=== PATIENT | male | born 1945 | race Caucasian/White ===

== ENCOUNTER 2017-11-05 17:32 | Inpatient (IN) | payer OTHER, MEDICAID, MEDICARE ==
[2017-11-05 18:32] LABS: ADD MAN DIFF? NO
[2017-11-05] MEDS: SOD CHLORIDE 0.9% 1,000 ML IV (18:32)
[2017-11-05] MEDS: ONDANSETRON 4 MG INJ IV (18:32)
[2017-11-05 18:34] LABS: BASOPHIL # 0.1 10^3/ul (0.0-0.1); BASOPHILS % 0.8 % (0.0-2.0); EOSINOPHILS # 0.4 10^3/ul (0.0-0.5); EOSINOPHILS % 3.6 % (0.0-7.0); HEMATOCRIT 35.7 % (42.0-52.0); HEMOGLOBIN 11.9 g/dl (14.0-18.0); LYMPHOCYTES # 2.6 10^3/ul (0.8-2.9); LYMPHOCYTES % 24.7 % (15.0-51.0); MEAN CORPUSCULAR HEMOGLOBIN 29.2 pg (29.0-33.0); MEAN CORPUSCULAR HGB CONC 33.3 g/dl (32.0-37.0); MEAN CORPUSCULAR VOLUME 87.5 fl (82.0-101.0); MEAN PLATELET VOLUME 10.4 fl (7.4-10.4); MONOCYTE # 0.8 10^3/ul (0.3-0.9); MONOCYTES % 7.9 % (0.0-11.0); NEUTROPHIL # 6.7 10^3/ul (1.6-7.5); NEUTROPHILS % 62.4 % (39.0-77.0); PLATELET COUNT 235 10^3/UL (140-415); RED BLOOD COUNT 4.08 10^6/ul (4.70-6.10); RED CELL DISTRIBUTION WIDTH 16.3 % (11.5-14.5)
[2017-11-05 18:34] LABS: WHITE BLOOD COUNT 10.6 10^3/ul (4.8-10.8)
[2017-11-05 18:53] LABS: ALANINE AMINOTRANSFERASE 41 IU/L (13-69); ALBUMIN 4.2 g/dl (3.3-4.9); ALBUMIN/GLOBULIN RATIO 1.35; ALKALINE PHOSPHATASE 73 IU/L (42-121); ANION GAP 20 (8-16); ASPARTATE AMINO TRANSFERASE 29 IU/L (15-46); BLOOD UREA NITROGEN 13 mg/dl (7-20); CARBON DIOXIDE 19 mmol/L (21-31); CHLORIDE 108 mmol/L (97-110); CREATININE 0.81 mg/dl (0.61-1.24); GLUCOSE 124 mg/dl (70-220); POTASSIUM 3.6 mmol/L (3.5-5.1); SODIUM 143 mmol/L (135-144); TOTAL PROTEIN 7.3 g/dl (6.1-8.1)
[2017-11-05 18:54] LABS: INR 0.93; PROTIME 12.6 Sec (11.9-14.9)
[2017-11-05 18:56] LABS: PARTIAL THROMBOPLASTIN TIME 22.5 Sec (25.0-35.0)
[2017-11-05 19:04] LABS: TROPONIN-I < 0.010 ng/ml (0.000-0.120)
[2017-11-05] MEDS: PANTOPRAZOLE IV 80 MG in SOD CHLORIDE 0.9% 100 ML IVPB (19:08)
[2017-11-05 19:27] LABS: UR RBC 0 /HPF (0-5); UR SQUAMOUS EPITHELIAL CELL FEW /HPF (FEW); UR WBC 1 /HPF (0-5)
[2017-11-05 19:31] LABS: ADD UMIC NO; UR ASCORBIC ACID NEGATIVE (NEGATIVE); UR BILIRUBIN (Dip) NEGATIVE (NEGATIVE); UR BLOOD (Dip) NEGATIVE (NEGATIVE); UR CLARITY CLEAR (CLEAR); UR COLOR YELLOW (YELLOW); UR GLUCOSE (Dip) 3+ mg/dL (NEGATIVE); UR KETONES (Dip) NEGATIVE (NEGATIVE); UR LEUKOCYTE ESTERASE (Dip) NEGATIVE Leu/ul (NEGATIVE); UR NITRITE (Dip) NEGATIVE (NEGATIVE); UR SPECIFIC GRAVITY (Dip) 1.011 (1.003-1.030); UR TOTAL PROTEIN (Dip) NEGATIVE (NEGATIVE); UR UROBILINOGEN (Dip) NEGATIVE (NEGATIVE)
[2017-11-05 19:44] LABS: AMPHETAMINE/METHAMPHETAMINE Negative (NEGATIVE); BARBITURATES Negative (NEGATIVE); BENZODIAZEPINES Negative (NEGATIVE); CANNABINOIDS Negative (NEGATIVE); COCAINE Negative (NEGATIVE)
[2017-11-05 19:47] LABS: OPIATES Negative (NEGATIVE)
[2017-11-05] MEDS ORDERED: ACETAMINOPHEN 325 MG TAB PO ×2 (21:00→23:00)
[2017-11-05] MEDS ORDERED: ONDANSETRON 4 MG INJ IV ×2 (21:00→23:00)
[2017-11-05] MEDS ORDERED: NON-FORMULARY/PATIENT OWN MED (Sitagliptin Phos-Metformin Hcl (Janumet) 1 TAB) PO (23:00)
[2017-11-05] MEDS ORDERED: D5-NS + KCL 40 MEQ 1,000 ML IV (23:00)
[2017-11-06] MEDS: D5-NS + KCL 40 MEQ 1,000 ML IV (02:54)
[2017-11-06 05:55] LABS: ADD MAN DIFF? NO
[2017-11-06] MEDS: PANTOPRAZOLE 40 MG INJ IV (06:04)
[2017-11-06 06:07] LABS: BASOPHIL # 0.1 10^3/ul (0.0-0.1); BASOPHILS % 0.9 % (0.0-2.0); EOSINOPHILS # 0.3 10^3/ul (0.0-0.5); EOSINOPHILS % 4.3 % (0.0-7.0); HEMATOCRIT 34.1 % (42.0-52.0); HEMOGLOBIN 11.2 g/dl (14.0-18.0); LYMPHOCYTES # 2.1 10^3/ul (0.8-2.9); MEAN CORPUSCULAR HEMOGLOBIN 28.6 pg (29.0-33.0); MEAN CORPUSCULAR HGB CONC 32.8 g/dl (32.0-37.0); MEAN PLATELET VOLUME 10.6 fl (7.4-10.4); MONOCYTE # 0.6 10^3/ul (0.3-0.9); MONOCYTES % 9.9 % (0.0-11.0); NEUTROPHIL # 3.4 10^3/ul (1.6-7.5); NEUTROPHILS % 52.6 % (39.0-77.0); PLATELET COUNT 218 10^3/UL (140-415); RED BLOOD COUNT 3.92 10^6/ul (4.70-6.10); RED CELL DISTRIBUTION WIDTH 16.8 % (11.5-14.5)
[2017-11-06 06:07] LABS: WHITE BLOOD COUNT 6.5 10^3/ul (4.8-10.8)
[2017-11-06 06:40] LABS: HEMOGLOBIN A1C 9.5 % (0-5.9)
[2017-11-06 06:41] LABS: ANION GAP 13 (8-16); BLOOD UREA NITROGEN 13 mg/dl (7-20); CALCIUM 8.5 mg/dl (8.4-10.2); CARBON DIOXIDE 25 mmol/L (21-31); CHLORIDE 109 mmol/L (97-110); CHOL/HDL RATIO 2.6 RATIO; CHOLESTEROL 161 mg/dl (100-200); CREATININE 0.71 mg/dl (0.61-1.24); GLUCOSE 195 mg/dl (70-220); HDL CHOLESTEROL 60 mg/dl (31-75); LDL CHOLESTEROL,CALCULATED 41 mg/dl; POTASSIUM 4.1 mmol/L (3.5-5.1); SODIUM 143 mmol/L (135-144); TRIGLYCERIDES 301 mg/dl (0-149)
[2017-11-06] MEDS ORDERED: LIDOCAINE 2% (SDV) 5 ML INJ (07:00)
[2017-11-06] MEDS ORDERED: GLUCOSE GEL 15 GRAM TUBE BUCCAL (07:30)
[2017-11-06] MEDS ORDERED: DEXTROSE 50% 50 ML SYRINGE IV ×2 (07:30)
[2017-11-06] MEDS ORDERED: GLUCAGON 1 MG INJ IM (07:30)
[2017-11-06] MEDS ORDERED: GLUCOSE GEL 15 GRAM TUBE PO ×2 (07:30)
[2017-11-06] MEDS: INSULIN ASPART [NOVOLOG] 3 ML PEN SC ×4 (08:56→21:00)
[2017-11-06] MEDS: ISOSORBIDE MONONITRATE(SR)30 MG TAB PO (08:58)
[2017-11-06] MEDS: METOPROLOL 25 MG TAB PO ×2 (08:58→21:31)
[2017-11-06] MEDS: LISINOPRIL 10 MG TAB PO (09:00)
[2017-11-06] MEDS: LORATADINE 10 MG TAB PO (09:00)
[2017-11-06] MEDS: DULOXETINE 30 MG CAP DR PO (12:52)
[2017-11-06] MEDS: HYDROCODONE/APAP (5/325) TAB PO (17:01)
[2017-11-06] MEDS: ETOMIDATE 20 MG INJ (17:24)
[2017-11-06] MEDS: ACARBOSE 50 MG TAB PO (17:55)
[2017-11-06] MEDS ORDERED: PHENYTOIN 100 MG CAP PO (21:00)
[2017-11-06] MEDS: ATORVASTATIN 20 MG TAB PO (21:22)
[2017-11-06] MEDS: glipiZIDE 10 MG TAB PO (21:22)
[2017-11-06] MEDS: CALCIUM/VITAMIN D (500/200) TAB PO (21:24)
[2017-11-06] MEDS: TAMSULOSIN (SR) 0.4 MG CAP PO (21:25)
[2017-11-06] MEDS: PHENYTOIN 100 MG CAP PO (21:25)
[2017-11-06] MEDS: EZETIMIBE 10 MG TAB PO (21:31)
[2017-11-07] MEDS: ACCU-CHEK XX (02:00)
[2017-11-07 05:38] LABS: ADD MAN DIFF? NO
[2017-11-07 05:48] LABS: WHITE BLOOD COUNT 6.9 10^3/ul (4.8-10.8)
[2017-11-07 05:49] LABS: BASOPHIL # 0.1 10^3/ul (0.0-0.1); BASOPHILS % 0.7 % (0.0-2.0); EOSINOPHILS # 0.3 10^3/ul (0.0-0.5); EOSINOPHILS % 4.2 % (0.0-7.0); HEMATOCRIT 36.1 % (42.0-52.0); MEAN CORPUSCULAR HEMOGLOBIN 29.1 pg (29.0-33.0); MEAN CORPUSCULAR HGB CONC 33.2 g/dl (32.0-37.0); MEAN CORPUSCULAR VOLUME 87.6 fl (82.0-101.0); MEAN PLATELET VOLUME 10.4 fl (7.4-10.4); MONOCYTE # 0.6 10^3/ul (0.3-0.9); MONOCYTES % 9.3 % (0.0-11.0); NEUTROPHIL # 3.9 10^3/ul (1.6-7.5); NEUTROPHILS % 56.5 % (39.0-77.0); PLATELET COUNT 230 10^3/UL (140-415); RED BLOOD COUNT 4.12 10^6/ul (4.70-6.10); RED CELL DISTRIBUTION WIDTH 16.3 % (11.5-14.5)
[2017-11-07] MEDS: PANTOPRAZOLE (EC) 40 MG TAB PO (06:20)
[2017-11-07 06:47] LABS: PHENYTOIN (DILANTIN) < 3.0 ug/ml (10.0-20.0)
[2017-11-07 06:59] LABS: ANION GAP 15 (8-16); BLOOD UREA NITROGEN 10 mg/dl (7-20); CALCIUM 9.2 mg/dl (8.4-10.2); CARBON DIOXIDE 24 mmol/L (21-31); CHLORIDE 107 mmol/L (97-110); CREATININE 0.63 mg/dl (0.61-1.24); GLUCOSE 124 mg/dl (70-220); POTASSIUM 3.9 mmol/L (3.5-5.1); SODIUM 142 mmol/L (135-144)
[2017-11-07] MEDS: INSULIN ASPART [NOVOLOG] 3 ML PEN SC ×2 (07:55→13:02)
[2017-11-07] MEDS: ACARBOSE 50 MG TAB PO ×2 (07:56→12:55)
[2017-11-07] MEDS: glipiZIDE 10 MG TAB PO (07:58)
[2017-11-07] MEDS ORDERED: [UNRECOGNIZED DRUG - REMARK] XX (08:30)
[2017-11-07] MEDS: DULOXETINE 30 MG CAP DR PO (08:45)
[2017-11-07] MEDS: PHENYTOIN 100 MG CAP PO (08:45)
[2017-11-07] MEDS: CALCIUM/VITAMIN D (500/200) TAB PO (08:45)
[2017-11-07] MEDS: FENOFIBRATE 145 MG TAB PO (08:45)
[2017-11-07] MEDS: LORATADINE 10 MG TAB PO (08:46)
[2017-11-07] MEDS: LISINOPRIL 10 MG TAB PO (08:46)
[2017-11-07] MEDS: METOPROLOL 25 MG TAB PO (08:48)
[2017-11-07] MEDS: ISOSORBIDE MONONITRATE(SR)30 MG TAB PO (08:49)
[2017-11-07] MEDS ORDERED: ISOSORBIDE 30 MG PO (09:00)
[2017-11-07] MEDS ORDERED: ISOSORBIDE MONONITRATE(SR)30 MG TAB PO (09:00)
[2017-11-07 10:43] LABS: OCCULT BLOOD STOOL NEGATIVE (NEGATIVE)
== END 2017-11-07 14:03 | disposition home or self-care (01) | DRG 378 ==
LOC: E/R 17:32 → MS1 21:00
PROC: 0DB68ZX Excision of Stomach, Via Natural or Artificial Opening Endoscopic, Diagnostic (ICD-10-PCS; principal; 2017-11-06 13:20)
DX: K92.0 Hematemesis (principal); F33.1 Major depressive disorder, recurrent, moderate; I69.954 Hemiplegia and hemiparesis following unspecified cerebrovascular disease affecting left non-dominant side; D64.9 Anemia, unspecified; Z85.038 Personal history of other malignant neoplasm of large intestine; K20.9 Esophagitis, unspecified; K29.80 Duodenitis without bleeding; K22.2 Esophageal obstruction; E11.9 Type 2 diabetes mellitus without complications; E78.1 Pure hyperglyceridemia; E78.5 Hyperlipidemia, unspecified; I25.10 Atherosclerotic heart disease of native coronary artery without angina pectoris; Z95.5 Presence of coronary angioplasty implant and graft; Z87.891 Personal history of nicotine dependence; G40.909 Epilepsy, unspecified, not intractable, without status epilepticus; K29.70 Gastritis, unspecified, without bleeding
CPT/HCPCS: 36415; 71045; 80048; 80053; 80061; 80185; 80307; 81003; 82270; 82962; 83036; 84484; 85025; 85610; 85730; 86850; 86900; 86901; 88305; 88312; 93005; 96361; 96365; 96366; 96375; 97161; 99285-25